=== PATIENT | female | born 1945 | race Caucasian/White ===

== ENCOUNTER 2017-05-09 15:46 | Emergency (ER) | payer OTHER, BC ==
--- NOTE | 2017-05-09 15:54 | PDOC ---
History of Present Illness - General History Source: Patient Exam Limitations: No Limitations - History of Present Illness Initial Comments: 05/09/17 16:50 The patient is a 71 year old female, with a significant past medical history of hypertension and occasional bronchitis, who presents to the emergency department with a cough and shortness of breath since last night. The patient reports her cough is dry in nature and causes her to develop a choking sensation and throat irritation. Patient reports associated shortness of breath , but denies any chest pain, diaphoresis, or palpitations. Patient reports using an Albuterol inhaler, with minimal relief of symptoms. She denies any associated fever, chills, headache, dizziness, nasal congestion, or joint aches. She denies any history of asthma or COPD. She denies any abdominal pain, nausea, vomiting, diarrhea, or constipation. She denies any dysuria, hematuria, frequency, or urgency. She denies any recent travel or sick contacts. Allergies: Penicillins Past Surgical History: None reported Social History: Former smoker. No ETOH or recreational drug use. <Tien Trevino - Last Filed: 05/09/17 16:53> <Edward Amin - Last Filed: 05/13/17 07:40> - General Chief Complaint: Respiratory Stated Complaint: SOB,COUGH Time Seen by Provider: 05/09/17 15:53 Past History <Tien Trevino - Last Filed: 05/09/17 16:53> - Past Medical History Anemia: No Asthma: No Cancer: No Cardiac Disorders: No CVA: No COPD: No CHF: No Dementia: No Diabetes: No GI Disorders: No Disorders: No HTN: Yes Hypercholesterolemia: No Liver Disease: No Seizures: No Thyroid Disease: No - Suicide/Smoking/Psychosocial Hx Smoking Status: No Smoking History: Never smoked Have you smoked in the past 12 months: No Number of Cigarettes Smoked Daily: 0 Hx Alcohol Use: No Drug/Substance Use Hx: No Substance Use Type: None, Cocaine Hx Substance Use Treatment: No <Edward Amin - Last Filed: 05/13/17 07:40> - Past Medical History Allergies/Adverse Reactions: Allergies Allergy/AdvReac Type Severity Reaction Status Date / Time Penicillins Allergy Intermediate Rash Verified 05/09/17 15:47 Home Medications: Ambulatory Orders Hydrochlorothiazide [Hctz] 12.5 mg PO DAILY 07/12/11 Olmesartan Medoxomil [Benicar] 25 mg PO DAILY 07/12/11 Albuterol Sulfate [Proair Hfa -] 1 - 2 inh PO TID 03/10/14 Azithromycin [Zithromax -] 250 mg PO UTDICT #6 tab 05/09/17 Guaifenesin AC [Robitussin-AC] 1 - 2 tsp PO Q4HWA PRN #120 ml MDD 8 05/09/17 Review of Systems - Review of Systems Able to Perform ROS?: Yes Comments:: 05/09/17 16:51 CONSTITUTIONAL: Absent: fever, no chills, no fatigue EYES: Absent: visual changes ENT: Present: throat irritation, choking sensation Absent: ear pain, nasal congestion CARDIOVASCULAR: Absent: chest pain, no palpitations RESPIRATORY: Present: cough, SOB GI: Absent: abdominal pain, no nausea, no vomiting, no constipation, no diarrhea GENITOURINARY: Absent: dysuria, no frequency, no hematuria MUSKULOSKELETAL: Absent: back pain, no arthralgia, no myalgia SKIN: Absent: rash NEURO: Absent: headache <Tien Trevino - Last Filed: 05/09/17 16:53> *Physical Exam - Vital Signs Last Vital Signs Temp Pulse Resp BP Pulse Ox 97.8 F 99 H 20 128/82 99 05/09/17 15:47 05/09/17 15:47 05/09/17 15:47 05/09/17 15:47 05/09/17 15:47 - Physical Exam Comments: 05/09/17 16:52 GENERAL: Well-appearing, well-nourished. No apparent distress. HEENT: Normocephalic, atraumatic. PERRL, EOM intact. CARDIOVASCULAR: Normal S1, S2. Regular rate and rhythm. PULMONARY: Clear to auscultation bilaterally. Normal RR and O2 sat. Unlabored breathing. No wheezing, rales, or ronchi ABDOMEN: Soft, non-distended, non-tender. EXTREMITIES: Normal ROM in all four extremities. No gross deformities. SKIN: Warm, dry. No rash NEUROLOGICAL: No focal neurological deficits. <Tien Trevino - Last Filed: 05/09/17 16:53> Medical Decision Making - Medical Decision Making Patient in no respiratory distress. Respiratory rate and oxygen saturation normal Chest x-ray clear Mild bronchitis, antibiotics and cough suppressant, close follow-up if symptoms worsen. Fully ambulatory, alert and cheerful at departure with her to follow-up as directed <Edward Amin - Last Filed: 05/13/17 07:40> *DC/Admit/Observation/Transfer - Attestations Scribe Attestion: 05/09/17 16:52 Documentation prepared by Tien Trevino, acting as chief medical officer for Edward Lowery MD. <Tine Trevino - Last Filed: 05/09/17 16:53> - Discharge Dispostion Admit: No <Edward Amin - Last Filed: 05/13/17 07:40> Diagnosis at time of Disposition: Bronchitis - Discharge Dispostion Disposition: HOME Condition at time of disposition: Stable - Prescriptions Prescriptions: Azithromycin [Zithromax -] 250 mg PO UTDICT #6 tab Guaifenesin AC [Robitussin-AC] 1 - 2 tsp PO Q4HWA PRN #120 ml MDD 8 PRN Reason: Cough - Patient Instructions Printed Discharge Instructions: DI for Acute Bronchitis
[2017-05-09 16:10] VITALS: BP 128/82; PULSE 99; TEMP 97.8; BMI 34.7
== END 2017-05-09 17:01 | disposition home or self-care (01) ==
LOC: FER 15:46
DX: I10 Essential (primary) hypertension (principal)
CPT/HCPCS: 71046-TC-FY; 99282-25

== ENCOUNTER 2018-05-22 12:41 | Emergency (ER) | payer OTHER, BC ==
--- NOTE | 2018-05-22 13:10 | PDOC ---
Attending Attestation - Resident Resident Name: Miryam Saldana - ED Attending Attestation I have performed the following: I have examined & evaluated the patient, The case was reviewed & discussed with the resident, I agree w/resident's findings & plan, Exceptions are as noted - HPI HPI: 05/22/18 13:17 Ms Rivas is a 72 yo F h/o HTN who presents to the ER with a complaint of 3 days cough Pt is concerned because her cough is dry in nature and causes her to develop a choking sensation and throat irritation. Patient reports associated shortness of breath, but denies any chest pain, diaphoresis, or palpitations. She denies any associated fever, chills, headache, dizziness, nasal congestion, or joint aches. She denies any history of asthma or COPD. She denies any abdominal pain, nausea, vomiting, diarrhea, or constipation. No recent travel Sick contacts - Allergies: Penicillins Past Surgical History: None reported Social History: Former smoker. No ETOH or recreational drug use. - Physicial Exam PE: 05/22/18 13:19 GENERAL: The patient is in no acute distress, no respiratory distress, (+) cough HEAD: Normal EYES: PERRLA, EOMI, sclera anicteric, conjunctiva clear. ENT: Ears normal, nares patent, oropharynx clear without exudates. Moist mucous membranes. NECK: Normal range of motion, supple LUNGS: Breath sounds equal, clear to auscultation bilaterally. No wheezes HEART:Regular rate and rhythm, normal S1 and S2 without murmur, rub or gallop. ABDOMEN: Soft, nontender, normoactive bowel sounds. No guarding, no rebound. No masses palpable. EXTREMITIES: Normal range of motion, no edema. NEUROLOGICAL: Cranial nerves II through XII grossly intact. Normal speech. No focal neurological deficits. SKIN: Warm, Dry, normal turgor, no rashes or lesions noted. - Medical Decision Making 05/22/18 13:20 Pt presents with an upper respiratory infection and cough Pt has no high fevers No body aches to suggest influenza (also pt has been ill for the past 3 days, can not give Tamiflu) Lungs are largely clear Most likely bronchitis Can give Azithromycin Abuterol prn Tessalon pearls Mucinex Follow up with PMD
[2018-05-22 13:12] VITALS: BP 151/94; PULSE 89; TEMP 98.3; BMI 33.6
--- NOTE | 2018-05-22 13:12 | PDOC ---
History of Present Illness - General Chief Complaint: Cold Symptoms Stated Complaint: THROAT,COUGH Time Seen by Provider: 05/22/18 12:59 - History of Present Illness Initial Comments: 05/22/18 13:12 The patient is a 72 year old female with a PMH of HTN who presents to our ED this afternoon c/o 3 day h/o cough and sore throat. Cough is non-productive and started to irritate her throat. Denies any fevers/chills, tolerating PO intake. @ home being evaluated for similar SiSx of 1 week duration. Patient recieved both the Influenza vaccine and the Pneumococcal vacine this year. States she has an appointment for evaluation with her PMD, Dr. Davis, for June 04 for routine annual examination. The patient denies chest pain, shortness of breath, abdominal pain, nausea/ vomiting, diarrhea/constipation, dysuria/hematuria. Allergy: Penicillin Surgical: none reported Social: former smoker (quit 20 years previous) denies any other toxic habits. As per EMR, patient was evaluated in our ED in 04/2017 for similar SiSx and was discharged home with supportive care. Past History - Past Medical History Allergies/Adverse Reactions: Allergies Allergy/AdvReac Type Severity Reaction Status Date / Time Penicillins Allergy Intermediate Rash Verified 05/22/18 12:42 Home Medications: Ambulatory Orders Hydrochlorothiazide [Hctz] 12.5 mg PO DAILY 07/12/11 Olmesartan Medoxomil [Benicar] 20 mg PO DAILY 07/12/11 Azithromycin [Zithromax Tri-Ramiro (3 DAYS) -] 500 mg PO DAILY #3 tablet 05/22/18 Benzonatate [Tessalon Pearls -] 100 mg PO TID #21 capsule 05/22/18 Rosuvastatin [Crestor -] 5 mg PO HS 05/22/18 Anemia: No Asthma: No Cancer: No Cardiac Disorders: No CVA: No COPD: No CHF: No Dementia: No Diabetes: No GI Disorders: No Disorders: No HTN: Yes Hypercholesterolemia: No Liver Disease: No Seizures: No Thyroid Disease: No - Suicide/Smoking/Psychosocial Hx Smoking Status: No Smoking History: Never smoked Have you smoked in the past 12 months: No Number of Cigarettes Smoked Daily: 0 Hx Alcohol Use: No Drug/Substance Use Hx: No Substance Use Type: None, Cocaine Hx Substance Use Treatment: No Review of Systems - Review of Systems Constitutional: No: Chills, Fever HEENTM: No: Recent change in vision, Hearing Loss Respiratory: Yes: Cough. No: Shortness of Breath, Wheezing, Productive cough, Hemoptysis Cardiac (ROS): No: Chest Pain, Lightheadedness, Palpitations, Syncope ABD/GI: No: Constipated, Diarrhea, Nausea, Vomiting, Abdominal cramping : No: Burning, Dysuria *Physical Exam - Physical Exam General Appearance: Yes: Nourished, Appropriately Dressed HEENT: positive: Normal Voice, Hearing Grossly Normal. negative: Pharyngeal Erythema, Tonsillar Exudate, Nasal Congestion, Rhinorrhea Neck: positive: Trachea midline, Supple Respiratory/Chest: positive: Lungs Clear, Normal Breath Sounds. negative: Labored Respiration, Rapid RR, Crackles, Wheezing Cardiovascular: positive: S1, S2. negative: JVD, Murmur Vascular Pulses: Dorsalis-Pedis (R): 2+, Doralis-Pedis (L): 2+ Gastrointestinal/Abdominal: positive: Normal Bowel Sounds, Soft Extremity: positive: Normal Capillary Refill, Normal Inspection Integumentary: positive: Normal Color, Dry, Warm Neurologic: positive: resin remover II-XII NML intact, Fully Oriented, Alert Medical Decision Making - Medical Decision Making 72 year old well appearing female with cough and sore throat. No h/of fever or body ache. VS unremarkable. Lungs CLTA. Clinical suspicion for viral URI vs. bronchitis. As patient has h/o smoking will prescribe Azithromycin and discharge home with supportive care including Tessalon pearjose. Patient counseled to follow-up this week with PMD and return to ED for worsening SiSx including fevers. Clinical Impression: Viral URI vs. Bronchitis I discussed the physical exam findings, ancillary test results and final diagnoses with the patient. I answered all of the patient's questions. The patient was satisfied with the care received and felt comfortable with the discharge plan and treatment plan. The patient will return to the Emergency Department with any new, persistent or worsening symptoms. *DC/Admit/Observation/Transfer Diagnosis at time of Disposition: Viral syndrome - Discharge Dispostion Disposition: HOME Condition at time of disposition: Good Decision to Admit order: No - Prescriptions Prescriptions: Azithromycin [Zithromax Tri-Ramiro (3 DAYS) -] 500 mg PO DAILY #3 tablet Benzonatate [Tessalon Pearls -] 100 mg PO TID #21 capsule - Referrals - Patient Instructions Printed Discharge Instructions: DI for Viral Upper Respiratory Infection -- Adult Additional Instructions: Follow up with your primary care doctor in 3 days. A prescription has been called to your pharmacy. Please take the entire prescribed course. Return to the Emergency Department for any new/worsening/concerning symptoms. - Post Discharge Activity
== END 2018-05-22 13:55 | disposition home or self-care (01) ==
LOC: FER 12:41
DX: B34.9 Viral infection, unspecified (principal); I10 Essential (primary) hypertension
CPT/HCPCS: 99282-25

== ENCOUNTER 2019-04-23 12:17 | Emergency (ER) | payer OTHER, BC ==
[2019-04-23 12:51] VITALS: BP 131/64; PULSE 88; TEMP 98; BMI 33.6
--- NOTE | 2019-04-23 12:58 | PDOC ---
History of Present Illness - General Chief Complaint: Cold Symptoms Stated Complaint: RUNNY NOSE, Time Seen by Provider: 04/23/19 12:24 History Source: Patient Exam Limitations: No Limitations - History of Present Illness Initial Comments: 04/23/19 12:52 CHIEF COMPLAINT: Nasal congestion for 4 days HISTORY OF PRESENT ILLNESS: 73-year-old female with a history of hypertension and borderline hyperlipidemia presents complaining of 4 days of nasal congestion. Patient states she was outside shoveling snow 6 days ago, the following day she felt a little bit tired. 4 days ago she started having some clear nasal discharge with congestion, and some eye injection. She also had a slight scratchy throat which has now resolved. She also had a slight cough which has also resolved. Currently, the symptoms of nasal congestion and red eyes continue. She felt chills on the first day, but that has also resolved. She denies fever. She denies any chest pain or shortness of breath. She denies any nausea, vomiting or diarrhea. There is no skin rash. There are no sick contacts. REVIEW OF SYSTEMS: GENERAL/CONSTITUTIONAL: Positive chills, now resolved. No fever. No current weakness. No weight change. HEAD, EYES, EARS, NOSE AND THROAT: No change in vision. No ear pain. Positive nasal congestion and discharge. Positive scratchy throat, now resolved. CARDIOVASCULAR: No chest pain or shortness of breath. RESPIRATORY: Positive cough on the first day, now resolved. No wheezing or hemoptysis. No sputum production. GASTROINTESTINAL: No nausea, vomiting, diarrhea or constipation. No rectal bleeding. GENITOURINARY: No dysuria, frequency, or change in urination. MUSCULOSKELETAL: No joint or muscle swelling or pain. No neck or back pain. SKIN AND BREASTS: No rash or easy bruising. NEUROLOGIC: No headache, vertigo, loss of consciousness, or loss of sensation. PSYCHIATRIC: No depression or anxiety. ENDOCRINE: No increased thirst. No abnormal weight change. HEMATOLOGIC/LYMPHATIC: No anemia, easy bleeding, or history of blood clots. ALLERGIC/IMMUNOLOGIC: No hives or skin allergy. No latex allergy. Past History - Past Medical History Allergies/Adverse Reactions: Allergies Allergy/AdvReac Type Severity Reaction Status Date / Time Penicillins Allergy Intermediate Rash Verified 05/22/18 12:42 Home Medications: Ambulatory Orders Hydrochlorothiazide [Hctz] 12.5 mg PO DAILY 07/12/11 Rosuvastatin [Crestor -] 5 mg PO HS 05/22/18 Losartan Potassium [Cozaar -] 50 mg PO DAILY 04/23/19 Pseudoephedrine HCl [Sudafed] 30 mg PO Q6H PRN #24 tablet 04/23/19 Anemia: No Asthma: No Cancer: No Cardiac Disorders: No CVA: No COPD: No CHF: No Dementia: No Diabetes: No GI Disorders: No Disorders: No HTN: Yes (Takes hydrochlorothiazide and a blood pressure pill) Hypercholesterolemia: Yes (Mild on low-dose statin) Liver Disease: No Seizures: No Thyroid Disease: No - Psycho Social/Smoking Cessation Hx Smoking Status: No Smoking History: Never smoked Have you smoked in the past 12 months: No Number of Cigarettes Smoked Daily: 0 Information on smoking cessation initiated: No Hx Alcohol Use: No Drug/Substance Use Hx: No Substance Use Type: None, Cocaine Hx Substance Use Treatment: No *Physical Exam - Vital Signs Last Vital Signs Temp Pulse Resp BP Pulse Ox 98 F 88 20 131/64 97 04/23/19 12:17 04/23/19 12:17 04/23/19 12:17 04/23/19 12:17 04/23/19 12:17 - Physical Exam 04/23/19 12:54 GENERAL: The patient is awake, alert, and fully oriented, in no acute distress. She appears well. She is dabbing at her nose with a runny nose and clear discharge. HEAD: Normal with no signs of trauma. EYES: Pupils equal, round and reactive to light, extraocular movements intact, sclera anicteric, conjunctiva with injection. ENT: Ears normal, tympanic membranes normal, nares patent, but with positive erythema and mild swelling of the nasal membranes, oropharynx clear without exudates. Moist mucous membranes. No sinus tenderness over the frontal, ethmoid, or maxillary sinuses. Normal transillumination. NECK: Normal range of motion, supple without lymphadenopathy, JVD, or masses. LUNGS: Breath sounds equal, clear to auscultation bilaterally. No wheezes, and no crackles. HEART: Regular rate and rhythm, normal S1 and S2 without murmur, rub or gallop. ABDOMEN: Soft, nontender, normoactive bowel sounds. No guarding, no rebound. No masses. EXTREMITIES: Normal range of motion, no edema. No clubbing or cyanosis. No cords, erythema, or tenderness. NEUROLOGICAL: Cranial nerves II through XII grossly intact. Normal speech, normal gait. PSYCH: Normal mood, normal affect. SKIN: Warm, Dry, normal turgor, no rashes or lesions noted. Medical Decision Making - Medical Decision Making 04/23/19 12:56 73-year-old female with a history of hypertension and borderline hyperlipidemia presents complaining of 4 days of symptoms of a head cold. On examination there is inflammation of her conjunctiva, nasal membranes, and a clear nasal discharge without signs of bacterial sinusitis. Patient will be treated with decongestants and Echinacea. 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 Your diagnosis is a head cold. Take Sudafed 30 mg every 6 hours as needed for nasal congestion or discharge. Take Echinacea twice a day to help resolve the cold. Drink plenty of fluids. Take Tylenol if needed for fever or chills. Follow-up with Dr. Davis. Return to the emergency department for any severe or progressive symptoms. - Post Discharge Activity
== END 2019-04-23 13:42 | disposition home or self-care (01) ==
LOC: FER 12:17
DX: B34.9 Viral infection, unspecified (principal); Z88.0 Allergy status to penicillin; H30.93 Unspecified chorioretinal inflammation, bilateral; I10 Essential (primary) hypertension
CPT/HCPCS: 99281-25

== ENCOUNTER 2019-09-28 13:57 | Emergency (ER) | payer OTHER, BC ==
[2019-09-28 14:04] VITALS: BMI 33.6
[2019-09-28 17:28] LABS: ALBUMIN 3.7 g/dl (3.4-5.0); BILIRUBIN,TOTAL 1.1 mg/dl (0.2-1); CALCIUM 8.7 mg/dl (8.5-10); CREATININE 0.9 mg/dl (0.55-1.3); POTASSIUM 4.2 mmol/L (3.5-5.1); TOT PROT 6.9 g/dl (6.4-8.2)
[2019-09-28 17:50] LABS: BASO % 0.2 % (0-2.0); EOS % 1.5 % (0-4.5); HEMATOCRIT 46.2 % (32.4-45.2); HEMOGLOBIN 15.2 GM/dL (10.7-15.3); LYMPH % 11.9 % (8-40); MCH 28.8 pg (25.7-33.7); MCHC 32.9 g/dl (32.0-36.0); MEAN CELL VOLUME 87.6 fl (80-96); MONO % 8.1 % (3.8-10.2); NEUT % 78.3 % (42.8-82.8); PLATELET COUNT 216 K/MM3 (134-434); RBC 5.27 M/mm3 (3.60-5.2); RDW 13.9 % (11.6-15.6); WHITE BLOOD COUNT 13.4 K/mm3 (4.0-10.0)
--- NOTE | 2019-09-28 18:58 | PDOC ---
Documentation entered by Johanna Garvin SCRIBE, acting as scribe for Edward Amin MD. Edward Amin MD: This documentation has been prepared by the hamibeBharathi Maria, SCRIBE, under my direction and personally reviewed by me in its entirety. I confirm that the documentation accurately reflects all work, treatment, procedures, and medical decision making performed by me. History of Present Illness - General Chief Complaint: Pain, Acute Stated Complaint: ABD PAIN Time Seen by Provider: 09/28/19 14:18 History Source: Patient Exam Limitations: No Limitations - History of Present Illness Initial Comments: 09/28/19 15:12 The patient is a 73 year old female with a significant past medical history of hypertension, hyperlipidemia, and hypercholesterolemia who presents to the emergency department with 1 week of worsening abdominal pain. She describes the pain as a diffuse cramping sensation in her pelvic region, and endorses pain on both her left and right flank that radiates to her back. She notes recently feeling very fatigued and having trouble waking up in the morning. Denies any associated nausea, vomiting, or diarrhea. As per patient, she states she had an MRI and was noted to have a herniating disc on her lower back. Patient reports her LBM was this morning. She denies recent dysuria, frequency, urgency or hematuria. Denies vaginal discharge or bleeding. Denies any respiratory symptoms. Allergies: Penicillins Past surgical history: Back surgery Social history: Prior smoker, quit in her 20s. Denies EtOH use and recreational drug use. Primary Care Physician: Physical exam: Alert and oriented well-developed well-nourished mild distress due to abdominal pain, but resting comfortably and cooperative Afebrile, vital signs normal No pallor or icterus. PERRLA, ENT clear Neck supple without bruit mass or nodes Lungs clear, full breath sounds bilaterally CV regular without murmur rub or gallop. No tachycardia. Pulses full. No JVD or edema. No bruits Abdomen mildly distended, bowel sounds normal. Mild tenderness to deep palpation suprapubic and both lower quadrants. No guarding or rebound. Neurological intact Skin clear, no rash, adequate turgor and wet mucous membranes Extremities no CCE Impression: Abdominal pain, lower abdomen and pelvis, most likely diagnosis is diverticulitis, other possibilities include UTI, atypical appendicitis, gastroenteritis or colitis, atypical renal colic Plan: CBC and chemistries, CT, further evaluation and treatment depending on results. Past History - Medical History Allergies/Adverse Reactions: Allergies Allergy/AdvReac Type Severity Reaction Status Date / Time Penicillins Allergy Intermediate Rash Verified 09/28/19 13:57 Home Medications: Ambulatory Orders Hydrochlorothiazide [Hctz] 12.5 mg PO DAILY 07/12/11 Losartan Potassium [Cozaar -] 50 mg PO DAILY 04/23/19 Ciprofloxacin HCl [Cipro] 500 mg PO DAILY #20 tablet 09/28/19 metroNIDAZOLE [Flagyl -] 500 mg PO BID #20 tablet 09/28/19 Anemia: No Asthma: No Cancer: No Cardiac Disorders: No CVA: No COPD: No CHF: No Dementia: No Diabetes: No GI Disorders: No Disorders: No HTN: Yes (Takes hydrochlorothiazide and a blood pressure pill) Hypercholesterolemia: Yes (Mild on low-dose statin) Liver Disease: No Seizures: No Thyroid Disease: No - Psycho-Social/Smoking History Smoking Status: No Smoking History: Never smoked Have you smoked in the past 12 months: No Number of Cigarettes Smoked Daily: 0 - Substance Abuse Hx (Audit-C & DAST Scrn) How often the patient has a drink containing alcohol: Monthly or less Number of drinks the patient has on a typical day: 1 or 2 How often the patient has six or more drinks on one occasion: Never Score: In Men: 4 or > Positive; In Women: 3 or > Positive: 1 Screen Result (Pos requires Nsg. Audit-10AR): Negative In the last yr the pt used illegal drug/Rx for NonMed reason: No Score: Yes response is considered Positive: 0 Screen Result (Positive result requires Nsg. DAST-10): Negative Review of Systems - Review of Systems Able to Perform ROS?: Yes Comments:: 09/28/19 15:13 CONSTITUTIONAL: +fatigue Absent: fever, chills, diaphoresis, malaise, loss of appetite HEENT: Absent: rhinorrhea, nasal congestion, throat pain, throat swelling, difficulty swallowing, mouth swelling, ear pain, eye pain, visual Changes CARDIOVASCULAR: Absent: chest pain, syncope, palpitations, irregular heart rate, lightheaded ness, peripheral edema RESPIRATORY: Absent: cough, shortness of breath, dyspnea with exertion, orthopnea, wheezing, stridor, hemoptysis GASTROINTESTINAL:+abdominal pain. Absent: nausea, vomiting, diarrhea, constipation, melena, hematochezia GENITOURINARY: +flank pain Absent: dysuria, frequency, urgency, hesitancy, hematuria, genital pain MUSCULOSKELETAL: Absent: myalgia, arthralgia, joint swelling SKIN: Absent: rash, itching, pallor HEMATOLOGIC/IMMUNOLOGIC: Absent: easy bleeding, easy bruising, lymphadenopathy, frequent infections ENDOCRINE: Absent: unexplained weight gain, unexplained weight loss, heat intolerance, cold intolerance NEUROLOGIC: Absent: headache, focal weakness or paresthesias, dizziness, unsteady gait, seizure, mental status changes, bladder or bowel incontinence PSYCHIATRIC: Absent: anxiety, depression, suicidal or homicidal ideation, hallucinations. *Physical Exam - Vital Signs Last Vital Signs Temp Pulse Resp BP Pulse Ox 98.9 F 106 H 20 153/88 100 09/28/19 13:57 09/28/19 13:57 09/28/19 13:57 09/28/19 13:57 09/28/19 13:57 ED Treatment Course - LABORATORY CBC & Chemistry Diagram: 09/28/19 16:10 09/28/19 16:02 Medical Decision Making - Medical Decision Making 09/28/19 17:41 73-year-old female with lower abdominal pain for several days. Also felt in both flanks. Has a history of herniated disc in the lumbosacral spine. No associated GI symptoms such as nausea vomiting diarrhea hematemesis melena or bloody stool. No urinary tract symptoms. No vaginal bleeding or discharge. No significant GI disease or surgery in the past. Abdominal exam shows mild to moderate tenderness in the suprapubic, left and right lower quadrants, without specific localization. There is no guarding or rebound. There is no CVAT. The pain is poorly described and characterized. The exam is nonspecific as noted. Possibilities include diverticulitis, appendicitis, partial obstruction, or less likely neurogenic pain referred from the back. There is a possibility that the flank components and abdominal components are separate processes as well. Chemistries and urinalysis show no significant abnormalities. 09/28/19 18:00 White blood count is 13.4. Abdominal and pelvic CT is pending. Patient signed out to Dr. Esquivel at 7 PM pending results of CT scan and further medical evaluation and disposition. Clinically and hemodynamically stable at present. Pain is controlled without medication. Discharge - Discharge Information Problems reviewed: Yes Clinical Impression/Diagnosis: Diverticulitis Condition: Stable Disposition: HOME - Additional Discharge Information Prescriptions: Ciprofloxacin HCl [Cipro] 500 mg PO DAILY #20 tablet metroNIDAZOLE [Flagyl -] 500 mg PO BID #20 tablet - Follow up/Referral - Patient Discharge Instructions Additional Instructions: Read over and follow the diverticulitis discharge instructions regarding diet. Take cipro 1 tablet two times a day for the next 10 days. Take Flagyl 1 tablet twice a day for the next 10 days. Tylenol as needed for the pain Return to the emergency department immediately with ANY new, persistent or worsening symptoms. Continue any medications as previously prescribed by your physician. You should follow up with your primary doctor as soon as possible regarding today's emergency department visit. . Please make sure your doctor reviews the results of your emergency evaluation. Thank you for coming to the Emergency Department today for your care. It was a pleasure to see you today. Please note that your evaluation is INCOMPLETE until you follow-up with your doctor. A diverticulitis diet is recommend as part of a short-term treatment plan for acute diverticulitis. Diverticula are small, bulging pouches that can form in the lining of the digestive system. They're found most often in the lower part of the large intestine (colon). This condition is called diverticulosis. In some cases, one or more of the pouches become inflamed or infected. This is known as diverticulitis. Mild cases of diverticulitis are usually treated with antibiotics and a diverticulitis diet, which includes clear liquids and low-fiber foods. More- severe cases typically require hospitalization. A diverticulitis diet is a temporary measure to give your digestive system a chance to rest. Oral intake is usually reduced until bleeding and diarrhea subside. A diverticulitis diet starts with only clear liquids for a few days. Examples of items allowed on a clear liquid diet include: Broth Fruit juices without pulp, such as apple juice Ice chips Ice pops without bits of fruit or fruit pulp Gelatin Water Tea or coffee without cream As you start feeling better, your doctor will recommend that you slowly add low- fiber foods. Examples of low-fiber foods include: Canned or cooked fruits without skin or seeds Canned or cooked vegetables such as green beans, carrots and potatoes (without the skin) Eggs, fish and poultry Refined white bread Fruit and vegetable juice with no pulp Low-fiber cereals Milk, yogurt and cheese eat yogurt at least once a day as it will help replenish the healthy bacteria in your intestines that the antibiotics kill. White rice, pasta and noodles You should feel better within two or three days of starting the diet and antibiotics. If you haven't started feeling better by then, call your doctor. Also contact your doctor if: You develop a fever Your abdominal pain is worsening You're unable to keep clear liquids down These may indicate a complication that requires hospitalization. The diverticulitis diet has few risks. However, continuing a clear liquid diet for more than a few days can lead to weakness and other complications, since it doesn't provide enough of the nutrients your body needs. For this reason, I recommend you to transition to the low fiberl diet as soon as you can tolerate it and then back to a normal diet once you finish the antibiotics. - Post Discharge Activity
--- NOTE | 2019-09-28 19:32 | PDOC ---
*Physical Exam - Vital Signs Last Vital Signs Temp Pulse Resp BP Pulse Ox 98.9 F 106 H 20 153/88 100 09/28/19 13:57 09/28/19 13:57 09/28/19 13:57 09/28/19 13:57 09/28/19 13:57 ED Treatment Course - LABORATORY CBC & Chemistry Diagram: 09/28/19 16:10 09/28/19 16:02 - ADDITIONAL ORDERS Additional order review: Laboratory Results 09/28/19 09/28/19 16:02 16:00 Sodium 135 L Potassium 4.2 Chloride 97 L Carbon Dioxide 27 Anion Gap 11 BUN 17.0 Creatinine 0.9 Est GFR (CKD-EPI)AfAm 73.52 Est GFR (CKD-EPI)NonAf 63.43 Random Glucose 84 Calcium 8.7 Total Bilirubin 1.1 H AST 23 ALT 28 Alkaline Phosphatase 48 Total Protein 6.9 Albumin 3.7 Urine Color Yellow Urine Appearance Clear Urine pH 7.0 Urine Protein Negative Urine Glucose (UA) Negative Urine Ketones Negative Urine Blood 1+ H Urine Nitrite Negative Urine Bilirubin Negative Urine Urobilinogen 0.2 Ur Leukocyte Esterase Negative Urine RBC 5-10 Urine WBC 0-2 Urine Bacteria Few 09/28/19 16:10 RBC 5.27 H MCV 87.6 MCHC 32.9 RDW 13.9 MPV 9.0 Neutrophils % 78.3 Lymphocytes % 11.9 Monocytes % 8.1 Eosinophils % 1.5 Basophils % 0.2 ED Progress Note - Progress Note Progress Note: 09/28/19 19:00 Care this patient was transferred to nd from Dr. Ted esquivel at 1900 hrs. Patient is a 73-year-old female who comes in complaining of left lower quadrant pain. Patient has a CAT scan pending however her white count is elevated at 13.4 and a small left shift. Otherwise work-up is unremarkable. CAT scan is still pending. 09/28/19 19:31 CAT scan shows thickening and irregularity of the splenic flexure and proximal descending colon with extensive inflammatory changes to the adjacent mesenteric fat no abscesses associated may resemble a focal colitis or possibly diverti culitis possible a malignancy cannot be excluded so colonoscopy follow-up was recommended. Patient given Zosyn and started on treatment for outpatient management of diverticulitis and was given copy of her CAT scan and referred back to her primary care doctor for further evaluation follow-up to rule out a malignancy Discharge - Discharge Information Problems reviewed: Yes Clinical Impression/Diagnosis: Diverticulitis Condition: Stable Disposition: HOME - Admission No - Follow up/Referral - Patient Discharge Instructions Additional Instructions: Read over and follow the diverticulitis discharge instructions regarding diet. Take cipro 1 tablet two times a day for the next 10 days. Take Flagyl 1 tablet twice a day for the next 10 days. Tylenol as needed for the pain Return to the emergency department immediately with ANY new, persistent or worsening symptoms. Continue any medications as previously prescribed by your physician. You should follow up with your primary doctor as soon as possible regarding today's emergency department visit. . Please make sure your doctor reviews the results of your emergency evaluation. Thank you for coming to the Emergency Department today for your care. It was a pleasure to see you today. Please note that your evaluation is INCOMPLETE until you follow-up with your doctor. A diverticulitis diet is recommend as part of a short-term treatment plan for acute diverticulitis. Diverticula are small, bulging pouches that can form in the lining of the digestive system. They're found most often in the lower part of the large intestine (colon). This condition is called diverticulosis. In some cases, one or more of the pouches become inflamed or infected. This is known as diverticulitis. Mild cases of diverticulitis are usually treated with antibiotics and a diverticulitis diet, which includes clear liquids and low-fiber foods. More- severe cases typically require hospitalization. A diverticulitis diet is a temporary measure to give your digestive system a chance to rest. Oral intake is usually reduced until bleeding and diarrhea subside. A diverticulitis diet starts with only clear liquids for a few days. Examples of items allowed on a clear liquid diet include: Broth Fruit juices without pulp, such as apple juice Ice chips Ice pops without bits of fruit or fruit pulp Gelatin Water Tea or coffee without cream As you start feeling better, your doctor will recommend that you slowly add low- fiber foods. Examples of low-fiber foods include: Canned or cooked fruits without skin or seeds Canned or cooked vegetables such as green beans, carrots and potatoes (without the skin) Eggs, fish and poultry Refined white bread Fruit and vegetable juice with no pulp Low-fiber cereals Milk, yogurt and cheese eat yogurt at least once a day as it will help replenish the healthy bacteria in your intestines that the antibiotics kill. White rice, pasta and noodles You should feel better within two or three days of starting the diet and antibiotics. If you haven't started feeling better by then, call your doctor. Also contact your doctor if: You develop a fever Your abdominal pain is worsening You're unable to keep clear liquids down These may indicate a complication that requires hospitalization. The diverticulitis diet has few risks. However, continuing a clear liquid diet for more than a few days can lead to weakness and other complications, since it doesn't provide enough of the nutrients your body needs. For this reason, I recommend you to transition to the low fiberl diet as soon as you can tolerate it and then back to a normal diet once you finish the antibiotics. - Post Discharge Activity
[2019-09-28] MEDS ORDERED: CEFTRIAXONE 2,000 MG in DEXTROSE 5%-WATER - 50 ML IVPB ONE (19:39)
[2019-09-28 20:35] VITALS: BP 150/86; PULSE 94; TEMP 98.7
== END 2019-09-28 20:46 | disposition home or self-care (01) ==
LOC: FER 13:57
PROC: 3E033GC Introduction of Other Therapeutic Substance into Peripheral Vein, Percutaneous Approach (ICD-10-PCS; principal; 2019-09-28)
DX: K57.92 Diverticulitis of intestine, part unspecified, without perforation or abscess without bleeding (principal)
CPT/HCPCS: 36415; 74177-TC; 80053; 81003; 81015; 85025; 87086; 99285-25; Q9967

== ENCOUNTER 2019-12-09 05:13 | Day surgery (SDC) | payer OTHER, BC ==
[2019-12-09 08:05] VITALS: BMI 33.1
[2019-12-09 10:44] VITALS: TEMP 97.5
[2019-12-09 12:02] VITALS: BP 120/60; PULSE 74
--- NOTE | 2019-12-14 18:15 | PATH ---
Surgical Pathology Report Patient Name: DELANO TOLENTINO [facility]. Rec. #: [id number] /Age/Gender: 1945 (Age: 74) / F Account: [id number] Location: U-ENDOSCOPY Taken: 12/13/2019 Received: 12/13/2019 Reported: 12/14/2019 Physicians: Polo Nayak M.D. Specimen(s) Received A: HOT SNARE POLYPECTOMY RIGHT COLON x2 B: SIGMOID POLYP COLON Clinical History History polyps, abnormal CT scan, history diverticulitis Postoperative diagnosis: Colon polyps, diverticulosis Final Diagnosis A. COLON, RIGHT, X2, HOT SNARE POLYPECTOMY: TUBULAR ADENOMA(S). B. SIGMOID COLON, POLYP, BIOPSY: POLYPOID COLONIC MUCOSA WITH SMALL LYMPHOID AGGREGATE. Electronically Signed Johanna Rachel M.D. Gross Description A. Received in formalin, labeled "right colon biopsy 2" are 3 summers, irregular portions of soft tissue measuring 0.3 and 0.4 cm. in greatest dimension. The specimens are submitted in toto in one cassette. B. Received in formalin, labeled "polyp sigmoid colon" are 2 summers, irregular portions of soft tissue and organic debris measuring 0.1 and 0.2 cm. in greatest dimension. The specimens are submitted in toto in one cassette. MLSZ/12/13/2019 [facility]/12/13/2019
== END 2019-12-09 11:15 | disposition home or self-care (01) ==
LOC: JASU-ENDO 05:13
PROVIDERS: ATTEND Internal Medicine Gastroenterology
PROC: 0DBN8ZX Excision of Sigmoid Colon, Via Natural or Artificial Opening Endoscopic, Diagnostic (ICD-10-PCS; 2019-12-09)
PROC: 0DBK8ZX Excision of Ascending Colon, Via Natural or Artificial Opening Endoscopic, Diagnostic (ICD-10-PCS; principal; 2019-12-09 09:48)
DX: Z12.11 Encounter for screening for malignant neoplasm of colon (principal); Z86.010 Personal history of colon polyps; D12.2 Benign neoplasm of ascending colon; D12.5 Benign neoplasm of sigmoid colon; K57.30 Diverticulosis of large intestine without perforation or abscess without bleeding; K64.8 Other hemorrhoids
CPT/HCPCS: 88305-TC

== ENCOUNTER 2020-09-16 14:30 | Emergency (ER) | payer OTHER, BC ==
[2020-09-16 14:42] VITALS: BP 184/78; PULSE 90; TEMP 99.1; BMI 34.4
== END 2020-09-16 15:31 | disposition home or self-care (01) ==
LOC: JERFT 14:30 → JER 14:30 → JERFT 15:31
DX: S46.911A Strain of unspecified muscle, fascia and tendon at shoulder and upper arm level, right arm, initial encounter (principal)
CPT/HCPCS: 73030-TC-RT-FY; 99283-25

== ENCOUNTER 2022-01-08 06:44 | Day surgery (SDC) | payer OTHER, BC ==
[2022-01-07 09:44] VITALS: BMI 34.0
[~2022-01-08 06:44] MED LIST: ACETAMINOPHEN 325 MG TABLET (FP) PO PRN; BSS (NA/CA/MG/K) BALANCED SALT SOLUTION OPHTH SOLN 15 ML BOTTLE OD ONE; CHONDROITIN SU A/HYALUR SOD 1 KIT IO ONE; EPINEPHrine/PF 1 MG/1 ML (1:1,000) AMPULE SQ ONE; LIDOCAINE 1% P/F 10 MG/ML VIAL PNB ONE; POVIDONE-IODINE 5% OPHTHALMIC PREP 30 ML SOLUTION OD ONE; TETRACAINE 0.5% OPHTH SOLN 2 ML BOTTLE OD ONE; TRYPAN BLUE 0.5 ML DISP.SYRIN IO ONE
[2022-01-08] MEDS: OFLOXACIN 0.3% OPHTHALMIC SOLUTION 5 ML BOTTLE OP SCH ×3 (07:45→08:10)
[2022-01-08] MEDS: PHENYLEPHRINE 2.5% OPHTH SOLN 15 ML BOTTLE OP SCH ×3 (07:45→08:10)
[2022-01-08] MEDS: KETOROLAC TROMETHAMINE 0.5% EYE DROP 1 DROP DROPS OP SCH ×3 (07:45→08:10)
[2022-01-08] MEDS: TROPICAMIDE 1% OPHTH SOLN 15 ML BOTTLE OP SCH ×3 (07:45→08:10)
[2022-01-08] MEDS: CYCLOPENTOLATE HCL 1% OPHTH SOLN 2 ML BOTTLE OP SCH ×3 (07:45→08:10)
[2022-01-08] MEDS ORDERED: MIDAZOLAM HCL 2 MG/2 ML SINGLE DOSE VIAL ONE (09:20)
[2022-01-08] MEDS ORDERED: TETRACAINE 0.5% OPHTH SOLN 2 ML BOTTLE OD ONE (09:24)
[2022-01-08] MEDS ORDERED: TETRACAINE 0.5% OPHTH SOLN 2 ML BOTTLE TP ONE (09:24)
[2022-01-08] MEDS ORDERED: POVIDONE-IODINE 5% OPHTHALMIC PREP 30 ML SOLUTION OD ONE ×2 (09:26)
[2022-01-08] MEDS ORDERED: BSS (NA/CA/MG/K) BALANCED SALT SOLUTION OPHTH SOLN 15 ML BOTTLE OD ONE (09:32)
[2022-01-08] MEDS ORDERED: CHONDROITIN SU A/HYALUR SOD 1 KIT IO ONE (09:34)
[2022-01-08] MEDS ORDERED: LIDOCAINE HCL 1% PRESERVATIVE FREE - 30ML VIAL IO ONE (09:34)
[2022-01-08] MEDS ORDERED: EPINEPHrine/PF 1 MG/1 ML (1:1,000) AMPULE SQ ONE (09:41)
[2022-01-08 10:46] VITALS: BP 153/68; PULSE 89; RESP 18; TEMP 97.8
== END 2022-01-08 10:40 | disposition home or self-care (01) ==
LOC: JASU-SURG 06:44
PROVIDERS: ATTEND Ophthalmology
PROC: 08RJ3JZ Replacement of Right Lens with Synthetic Substitute, Percutaneous Approach (ICD-10-PCS; principal; 2022-01-08 09:00)
DX: H26.9 Unspecified cataract (principal)